=== PATIENT | female | born 1945 ===

== ENCOUNTER → 2018-02-06 | Emergency (ER) | payer OTHER ==
[~2018-02-06] VITALS: Ht 160 cm; Wt 79.4 kg
[~2018-02-06] MED LIST: ASPIR 8181 MG; COZAAR50 MG; SYNTHROID150 MCG
== END | disposition home or self-care (01) ==
LOC: ER 12:15
DX: R53.81 Other malaise (principal); R20.2 Paresthesia of skin; D69.6 Thrombocytopenia, unspecified; F41.9 Anxiety disorder, unspecified